=== PATIENT | male | born 1995 | race Two or more races ===

== ENCOUNTER 2017-03-22 14:36 | Emergency (ER) | payer SELFPAY ==
[~2017-03-22] VITALS: Ht 165.1 cm; Wt 113.4 kg
[2017-03-22 14:43] VITALS: BP 131/81
[2017-03-22] MEDS ORDERED: NACL 0.9% 1,000 ML IV ONE (14:50)
[2017-03-22] MEDS ORDERED: ONDANSETRON 4 MG/2 ML VIAL IVP ONE (14:50)
--- NOTE | 2017-03-22 14:53 | NUR ---
ASSUMED PATIENT CARE, CONCUR WITH TRIAGE. NURSING ASSESSMENT COMPLETED. SEEN AND EVALUATED BY PROVIDER, MSE COMPLETED.
--- NOTE | 2017-03-22 15:08 | NUR ---
IV ESTABLISHED, MEDICATED PER MD ORDER, IVF HYDRATION ONGOING.
[2017-03-22 15:56] LABS: BASOPHILS # (AUTO) 0.5 K/uL (0.00-0.22); BASOPHILS % (AUTO) 4.5 % (0.0-2.0); EOSINOPHILS # (AUTO) 0.1 K/uL (0-0.4); EOSINOPHILS % (AUTO) 0.8 % (0.0-4.0); HEMATOCRIT 39.9 % (36-52); HEMOGLOBIN 13.4 g/dL (12.0-18.0); LYMPHOCYTES # (AUTO) 2.8 K/uL (2.0-11.5); LYMPHOCYTES % (AUTO) 27.2 % (20.5-51.1); MEAN CORPUSCULAR HEMOGLOBIN 31 pg (27-31); MEAN CORPUSCULAR HGB CONC 34 g/dL (33-37); MEAN CORPUSCULAR VOLUME 92 fL (80-94); MONOCYTES # (AUTO) 1.1 K/uL (0.8-1.0); MONOCYTES % (AUTO) 10.7 % (1.7-9.3); NEUTROPHILS # (AUTO) 5.9 K/uL (1.8-7.7); NEUTROPHILS % (AUTO) 56.8 % (42.2-75.2); PLATELET COUNT (AUTO) 170 K/uL (140-450); RED BLOOD CELL COUNT(AUTO) 4.33 MIL/uL (4.20-6.10); RED CELL DISTRIBUTION WIDTH 12.4 % (11.6-13.7); WHITE BLOOD COUNT (AUTO) 10.4 K/uL (4.8-10.8)
--- NOTE | 2017-03-22 16:05 | NUR ---
PT AMB TO [facility].
--- NOTE | 2017-03-22 16:12 | NUR ---
Patient being reevaluated by DR TODD at bedside.
[2017-03-22 16:16] LABS: ALBUMIN 3.6 g/dL (3.4-5.0); ANION GAP 9.5 (8-16); CARBON DIOXIDE 29.7 mmol/L (21-32); CREATININE 0.9 mg/dL (0.7-1.3); POTASSIUM 4.2 mmol/L (3.5-5.1); TOTAL BILIRUBIN 1.3 mg/dL (0.0-1.0)
[2017-03-22 16:45] VITALS: BP 133/69
== END 2017-03-22 16:45 | disposition home or self-care (01) ==
LOC: MED 14:36
DX: A08.4 Viral intestinal infection, unspecified (principal)
CPT/HCPCS: 36415; 80053; 85025; 87804; 96361; 96374; 99284; J2405; J7030